=== PATIENT | female | born 1990 | race Caucasian/White ===

== ENCOUNTER 2019-10-23 11:24 | Emergency (ER) | payer SELFPAY ==
--- NOTE | 2019-10-23 12:06 | ER Document Report ---
ED Medical Screen (RME) - General Chief Complaint: Flank Pain Stated Complaint: RIGHT SIDE PAIN/CONGESTION Time Seen by Provider: 10/23/19 12:00 Mode of Arrival: Ambulatory Information source: Patient Notes: Patient presents complaining of right flank and side pain off and on for several years that patient states she got tired of today. Patient does report some nausea. No dysuria no recorded fever. I have greeted and performed a rapid initial assessment of this patient. A comprehensive ED assessment and evaluation of the patient, analysis of test results and completion of the medical decision making process will be conducted by additional ED providers. - Related Data Allergies/Adverse Reactions: No Known Allergies Allergy (Verified 10/23/19 11:53) Past Medical History - Social History Frequency of alcohol use: Occasional Drug Abuse: None Physical Exam - Vital signs Vitals: Temp Pulse Resp BP Pulse Ox 97.9 F 65 18 175/90 H 97 10/23/19 11:41 10/23/19 11:41 10/23/19 11:41 10/23/19 11:41 10/23/19 11:41 - General General appearance: Appears well, Alert In distress: None Notes: right lateral side tenderness Course - Vital Signs Vital signs: Temp Pulse Resp BP Pulse Ox 97.9 F 65 18 175/90 H 97 10/23/19 11:41 10/23/19 11:41 10/23/19 11:41 10/23/19 11:41 10/23/19 11:41
[2019-10-23 12:36] LABS: ABSOLUTE EOSINOPHILS # (AUTO) 0.2 10^3/uL (0.0-0.6); ABSOLUTE LYMPHOCYTES (AUTO) 1.9 10^3/uL (0.5-4.7); ABSOLUTE MONOCYTES (AUTO) 0.5 10^3/uL (0.1-1.4); ABSOLUTE NEUT (AUTO) 3.7 10^3/uL (1.7-8.2); BASOPHILS % (AUTO) 0.6 % (0-2); EOSINOPHILS % (AUTO) 3.4 % (0-6); HEMATOCRIT 42.1 % (36.0-47.0); HEMOGLOBIN 14.1 g/dL (12.0-15.5); MEAN CORPUSCULAR HEMOGLOBIN 29.6 pg (27.0-33.4); MEAN CORPUSCULAR HGB CONC 33.6 g/dL (32.0-36.0); MEAN CORPUSCULAR VOLUME 88 fl (80-97); MONOCYTES % (AUTO) 8.4 % (3-13); PLATELET COUNT 255 10^3/uL (150-450); RED BLOOD COUNT 4.77 10^6/uL (3.72-5.28); RED CELL DISTRIBUTION WIDTH 13.4 % (11.5-14.0); SEGMENTED NEUTROPHILS % (AUTO) 57.6 % (42-78); TOTAL CELLS COUNTED % (AUTO) 100 %; WHITE BLOOD COUNT 6.4 10^3/uL (4.0-10.5)
[2019-10-23 12:41] LABS: APPEARANCE,URINE CLEAR; BILIRUBIN,URINE NEGATIVE (NEGATIVE); COLOR,URINE YELLOW; GLUCOSE, URINE NEGATIVE (NEGATIVE); KETONES,URINE NEGATIVE (NEGATIVE); PROTEIN,URINE NEGATIVE (NEGATIVE); URINE SPECIFIC GRAVITY 1.011; UROBILINOGEN,URINE NEGATIVE mg/dL (<2.0)
[2019-10-23 13:00] LABS: ALBUMIN 4.6 g/dL (3.5-5.0); ALKALINE PHOSPHATASE 48 U/L (38-126); ANION GAP 7 (5-19); ASPARTATE AMINO TRANSFERASE 23 U/L (14-36); BILIRUBIN,DIRECT 0.1 mg/dL (0.0-0.4); BILIRUBIN,TOTAL 0.3 mg/dL (0.2-1.3); BLOOD UREA NITROGEN 17 mg/dL (7-20); CALCIUM 9.6 mg/dL (8.4-10.2); CARBON DIOXIDE 31 mmol/L (22-30); CHLORIDE 100 mmol/L (98-107); GLUCOSE 111 mg/dL (75-110); POTASSIUM 4.2 mmol/L (3.6-5.0); TOTAL PROTEIN 7.8 g/dL (6.3-8.2)
--- NOTE | 2019-10-23 13:39 | RADIOLOGY REPORT (SQ) ---
EXAM DESCRIPTION: U/S RETROPERITON (RENAL/AORTA) COMPLETED DATE/TIME: 10/23/2019 1:04 pm REASON FOR STUDY: r flank/side pain COMPARISON: None. TECHNIQUE: Dynamic and static grayscale images acquired of the kidneys and bladder and recorded on P ACS. Additional selected color Doppler and spectral images recorded. LIMITATIONS: None. FINDINGS: RIGHT KIDNEY: Normal size. Normal echogenicity. No solid or suspicious masses. No hydronep hrosis. No calcifications. LEFT KIDNEY: Normal size. Normal echogenicity. No solid or suspicious masses. No hydronephrosis. No calcifications. BLADDER: Not visualized (empty). OTHER FINDINGS: No other significant finding. IMPRESSION: NORMAL RENAL ULTRASOUND. TECHNICAL DOCUMENTATION: JOB ID: [id number] [employer]- All Rights Reserved Reading location - IP/workstation name: [email or web address]
--- NOTE | 2019-10-23 17:09 | ER Document Report ---
ED General - General Chief Complaint: Flank Pain Stated Complaint: RIGHT SIDE PAIN/CONGESTION Time Seen by Provider: 10/23/19 12:00 Mode of Arrival: Ambulatory Notes: This 28-year-old normally healthy female presents emergency department with complaints of right-sided flank pain that comes and goes for years. She denies pain with void. Denies fever vomiting diarrhea. Her boyfriend at her side reports she felt hot yesterday. Denies renal issues. Patient reports pain usually goes away when she applies a heating pad or warmth. She reports is not hurting now. No known family kidney disease. - Related Data Allergies/Adverse Reactions: No Known Allergies Allergy (Verified 10/23/19 11:53) Past Medical History - General Information source: Patient Last Menstrual Period: today - Social History Smoking Status: Current Every Day Smoker Cigarette use (# per day): Yes Frequency of alcohol use: Occasional Drug Abuse: None Family History: None Patient has suicidal ideation: No Patient has homicidal ideation: No - Medical History Medical History: Negative Surgical Hx: Negative Physical Exam - Vital signs Vitals: Temp Pulse Resp BP Pulse Ox 97.9 F 65 18 175/90 H 97 10/23/19 11:41 10/23/19 11:41 10/23/19 11:41 10/23/19 11:41 10/23/19 11:41 - Notes Notes: PHYSICAL EXAMINATION: GENERAL: Well-appearing and in no acute distress HEAD: Atraumatic, normocephalic. EYES: Pupils equal round and reactive to light, extraocular movements intact, sclera anicteric, conjunctiva are normal. ENT: nares patent, oropharynx clear without exudates. Moist mucous membranes. NECK: Normal range of motion, supple without lymphadenopathy LUNGS: CTAB and equal. No wheezes rales or rhonchi. HEART: Regular rate and rhythm without murmurs ABDOMEN: Soft, no tenderness. No guarding, no rebound EXTREMITIES: Normal range of motion, NEUROLOGICAL: Cranial nerves grossly intact. PSYCH: Normal mood, normal affect. SKIN: Warm, Dry, normal turgor, no rashes or lesions noted - General General appearance: Appears well, Alert In distress: None Course - Re-evaluation Re-evalutation: 10/23/19 17:08 28-year-old female with no past medical history presents emergency department with complaints of right-sided flank pain that comes and goes for years. Denies trauma. Denies pain with increased exercise. Denies fever nausea vomiting diarrhea also male at her side reports she felt warm yesterday. She reports the pain usually goes away with warmth. She denies pain at the side. No family history of kidney disease. Labs unremarkable renal ultrasound negative for acute injury. Patient was instructed on this. Instructed on the importance of follow-up with primary care provider within a week for a complete physical. She verbalized understanding at this time. Renal Ultrasound 10/23/19 12:03 IMPRESSION: NORMAL RENAL ULTRASOUND. 10/23/19 12:22 10/23/19 12:22 MCV 88 fl (80-97) 10/23/19 12:22 MCH 29.6 pg (27.0-33.4) 10/23/19 12:22 MCHC 33.6 g/dL (32.0-36.0) 10/23/19 12:22 RDW 13.4 % (11.5-14.0) 10/23/19 12:22 Seg Neutrophils % 57.6 % (42-78) 10/23/19 12:22 Chloride 100 mmol/L (98-107) 10/23/19 12:22 Carbon Dioxide 31 mmol/L (22-30) H 10/23/19 12:22 Anion Gap 7 (5-19) 10/23/19 12:22 Est GFR ( Amer) > 60 (>60) 10/23/19 12:22 Glucose 111 mg/dL (75-110) H 10/23/19 12:22 Calcium 9.6 mg/dL (8.4-10.2) 10/23/19 12:22 Total Bilirubin 0.3 mg/dL (0.2-1.3) 10/23/19 12:22 AST 23 U/L (14-36) 10/23/19 12:22 Alkaline Phosphatase 48 U/L (38-126) 10/23/19 12:22 Total Protein 7.8 g/dL (6.3-8.2) 10/23/19 12:22 Albumin 4.6 g/dL (3.5-5.0) 10/23/19 12:22 Serum HCG, Qual NEGATIVE (NEGATIVE) 10/23/19 12:22 Urine Color YELLOW 10/23/19 12:22 Urine Appearance CLEAR 10/23/19 12:22 Urine pH 7.0 (5.0-9.0) 10/23/19 12:22 Ur Specific [place] 1.011 10/23/19 12:22 Urine Protein NEGATIVE mg/dL (NEGATIVE) 10/23/19 12:22 Urine Glucose (UA) NEGATIVE mg/dL (NEGATIVE) 10/23/19 12:22 Urine Ketones NEGATIVE mg/dL (NEGATIVE) 10/23/19 12:22 Urine Blood SMALL (NEGATIVE) H 10/23/19 12:22 Urine RBC (Auto) 0 /HPF 10/23/19 12:22 10/23/19 17:22 Dictation of this chart was performed using voice recognition software; therefore, there may be some unintended grammatical errors. - Vital Signs Vital signs: Temp Pulse Resp BP Pulse Ox 97.9 F 75 16 133/74 H 97 10/23/19 17:31 10/23/19 17:31 10/23/19 17:31 10/23/19 17:31 10/23/19 17:31 - Laboratory Result Diagrams: 10/23/19 12:22 10/23/19 12:22 Laboratory results interpreted by me: 10/23/19 10/23/19 12:22 12:22 Carbon Dioxide 31 H Glucose 111 H Urine Blood SMALL H - Diagnostic Test Radiology reviewed: Reports reviewed Discharge - Discharge Clinical Impression: right side flank pain Condition: Stable Disposition: HOME, SELF-CARE Additional Instructions: *You have been evaluated for flank pain Your labs were unremarkable. Your renal ultrasound was negative for any acute injury *Take tylenol or motrin as indicated for pain or apply heating pad as indicated *Follow up with a primary care provider within 1 week *Return to ED for worsening condition, changes, needs *Return to ED if not better in 24 hours Monitor your blood pressure. Your blood pressure was elevated today. This may be because you were anxious, in pain or because you need medication. It is important to follow up with your primary care provider for full evaluation. Forms: Elevated Blood Pressure
[2019-10-23 17:33] VITALS: BP 133/74
== END 2019-10-23 17:31 | disposition home or self-care (01) ==
LOC: ER 11:24
DX: R10.9 Unspecified abdominal pain (principal); F17.210 Nicotine dependence, cigarettes, uncomplicated
CPT/HCPCS: 36415; 76770; 80053; 81001; 84703; 85025; 99284